=== PATIENT | female | born 1960 | race Asian ===

== ENCOUNTER 2021-03-11 11:21 | Emergency (ER) | payer MEDICAID ==
[~2021-03-11] VITALS: Ht 157.5 cm; Wt 63.5 kg
[2021-03-11 11:28] VITALS: BP_SYST 168
--- NOTE | 2021-03-11 11:30 | NUR ---
Patient to ER bed 3 to gown for evaluation. Side rails up. Report given to Leighton PHELAN.
--- NOTE | 2021-03-11 11:30 | NUR ---
Pt came into ER with complaint of hematuria X1Day with pain and burning upon urination. Pt AAOX4 spekaing full sentences no distress noted.
--- NOTE | 2021-03-11 11:32 | NUR ---
ER at bedside examining patient.
--- NOTE | 2021-03-11 11:33 | NUR ---
urine and blood collected and sent to lab.
--- NOTE | 2021-03-11 11:33 | NUR ---
# 20 gauge angiocath placed to RAC. Use of asceptic technique. Opsite placed over site. Blood return noted. Blood for lab drawn from site. Flushed with 10 cc of normal saline. No evidence of infiltration noted. Patient tolerated well.
[2021-03-11 11:48] LABS: BASOPHILS # (AUTO) 0.1 K/uL (0.0-0.2); BASOPHILS % (AUTO) 0.6 % (0.0-2.0); EOSINOPHILS # (AUTO) 0.1 K/uL (0.0-0.4); EOSINOPHILS % (AUTO) 0.9 % (0.0-4.0); HEMOGLOBIN 13.4 g/dL (12.0-16.0); LYMPHOCYTES # (AUTO) 1.8 K/uL (1.0-5.5); LYMPHOCYTES % (AUTO) 18.3 % (20.5-51.5); MEAN CORPUSCULAR HEMOGLOBIN 32 pg (27-31); MEAN CORPUSCULAR HGB CONC 34 % (32-36); MEAN CORPUSCULAR VOLUME 92 fL (79.0-98.0); MONOCYTES # (AUTO) 0.5 K/uL (0.0-1.0); MONOCYTES % (AUTO) 4.9 % (1.7-9.3); NEUTROPHILS # (AUTO) 7.2 K/uL (1.8-7.7); NEUTROPHILS % (AUTO) 75.3 % (40.0-70.0); PLATELET COUNT (AUTO) 298 K/uL (130-430); RED BLOOD CELL COUNT(AUTO) 4.22 MIL/uL (4.2-6.2); RED CELL DISTRIBUTION WIDTH 13.5 % (9.0-15.0); WHITE BLOOD COUNT (AUTO) 9.6 K/uL (4.8-10.8)
--- NOTE | 2021-03-11 12:10 | NUR ---
Patient transported to radiology via wheelchair, accompanied by tech.
[2021-03-11 12:12] LABS: CALCIUM 9.5 mg/dL (8.4-11.0); CREATININE 0.88 mg/dL (0.55-1.30); POTASSIUM 3.5 mmol/L (3.5-5.1)
--- NOTE | 2021-03-11 12:15 | NUR ---
Pt back from CT reattached to monitors.
[2021-03-11 12:16] LABS: C-REACTIVE PROTEIN QUANT 0.9 mg/dL (0-0.5); TOTAL BILIRUBIN 0.5 mg/dL (0.0-1.0)
[2021-03-11 12:18] LABS: INR 0.9 (0.8-1.2); PROTHROMBIN TIME 9.3 SECS (9.5-12.5)
[2021-03-11 12:23] LABS: BILIRUBIN,URINE 1+ (NEGATIVE); BLOOD, URINE 3+ (NEGATIVE); CLARITY/URINE CLOUDY (CLEAR); COLOR,URINE BROWN (YELLOW); GLUCOSE,URINE NEGATIVE (NEGATIVE); KETONES,URINE NEGATIVE (NEGATIVE); LEUKOCYTE ESTERASE ,URINE 2+ (NEGATIVE); NITRITE, URINE POSITIVE (NEGATIVE); PROTEIN URINE 2+ (NEGATIVE); UROBILINOGEN,URINE 0.2 (0.2-1.0)
[2021-03-11] MEDS ORDERED: PHEN-726 PO (12:49)
[2021-03-11] MEDS ORDERED: NITR-85 PO (12:49)
[2021-03-11] MEDS ORDERED: cefTRIAXone 1 GM in LIDOCAINE 1%, 20 ML MDV 2.1 ML IM ONE (13:00)
[2021-03-11 13:02] LABS: BACTERIA,URINE FEW /HPF (None Seen); RBC,URINE >100 /HPF (0-3)
[2021-03-11 13:15] VITALS: BP_SYST 136
--- NOTE | 2021-03-11 13:16 | NUR ---
Patient given written and verbal discharge instructions and verbalizes understanding. ER MD discussed with patient the results and treatment provided. Patient in stable condition. ID arm band removed. IV catheter removed intact and dressing applied, no active bleeding. Rx of pyridium and macrobid given. Patient educated on pain management and to follow up with PMD. Pain Scale 0/10. Opportunity for questions provided and answered. Medication side effect fact sheet provided.
== END 2021-03-11 13:16 | disposition home or self-care (01) ==
LOC: SED 11:21
DX: N39.0 Urinary tract infection, site not specified (principal)
CPT/HCPCS: 36415; 74176; 76376; 80053; 81000; 82150; 83605; 83690; 84703; 85025; 85610; 85730; 86140; 87086; 96372; 99284; J0696; J2001

== ENCOUNTER 2023-08-03 23:53 | Emergency (ER) | payer MEDICAID ==
[~2023-08-03] VITALS: Ht 157.5 cm; Wt 63.5 kg
[~2023-08-03 23:53] MED LIST: NITR-85 PO; PHEN-726 PO
[2023-08-04] VITALS: BP_SYST 146; PULSE 75; RESP 16; TEMP 97.9; O2SAT 98
[2023-08-04 01:13] LABS: BILIRUBIN,URINE NEGATIVE (NEGATIVE); BLOOD, URINE 3+ (NEGATIVE); CLARITY/URINE CLEAR (CLEAR); COLOR,URINE YELLOW (YELLOW); GLUCOSE,URINE NEGATIVE (NEGATIVE); KETONES,URINE NEGATIVE (NEGATIVE); LEUKOCYTE ESTERASE ,URINE 2+ (NEGATIVE); NITRITE, URINE NEGATIVE (NEGATIVE); PROTEIN URINE 1+ (NEGATIVE); UROBILINOGEN,URINE 0.2 (0.2-1.0)
[2023-08-04 01:28] LABS: BACTERIA,URINE FEW /HPF (None Seen); RBC,URINE >100 /HPF (0-3); WBC,URINE >100 /HPF (0-3)
[2023-08-04] MEDS ORDERED: PHEN-726 PO (01:53)
[2023-08-04] MEDS ORDERED: NITR-85 PO (01:53)
[2023-08-04 02:00] VITALS: BP_SYST 145; PULSE 72; RESP 16; TEMP 97.9; O2SAT 100
== END 2023-08-04 02:00 | disposition home or self-care (01) ==
LOC: SED 23:53
DX: N39.0 Urinary tract infection, site not specified (principal); R10.30 Lower abdominal pain, unspecified; R30.0 Dysuria; Z79.899 Other long term (current) drug therapy
CPT/HCPCS: 81000; 81001; 81015; 87086; 99283